=== PATIENT | male | born 1990 | race Caucasian/White ===

== ENCOUNTER 2021-12-24 20:00 | Emergency (ER) | payer OTHER, SELFPAY ==
--- NOTE | ~2021-12-24 | XR_ITS ---
XR foot LT 2V DATE: 12/24/2021 20:34 INDICATION: Left ankle and foot injury, pain TECHNIQUE: AP and lateral views COMPARISON: None FINDINGS: Slight plantar calcaneal enthesopathy. No fracture or dislocation, periosteal reaction or b one destruction. IMPRESSION: No fracture or dislocation Reviewed, dictated and finalized at location A. IMPRESSION: No fracture or dislocation
--- NOTE | ~2021-12-24 | XR_ITS ---
XR ankle LT 2V DATE: 12/24/2021 20:35 INDICATION: Left ankle and foot injury, pain TECHNIQUE: AP and lateral views COMPARISON: None FINDINGS: No fracture or dislocation of the ankle or disruption of the ankle mortise is detected. IMPRESSION: No fracture or dislocation of left ankle Reviewed, dictated and finalized at location A.
[2021-12-24 20:15] VITALS: BP 173/97; PULSE 85; RESP 16; TEMP 36.2; O2SAT 98
--- NOTE | 2021-12-24 20:52 | ED.LOWEXIN ---
HPI - Extremity Injury (Lower) General Chief Complaint: Extremity Injury, Lower Stated Complaint: L FOOT PAIN Source: patient Mode of arrival: ambulatory Limitations: no limitations History of Present Illness HPI Narrative: this is a 31-year-old gentleman that presents with some left foot and ankle pain after he had an episode where he misstepped and caused twisting his foot and ankle currently is pain level is about 3/10 when at rest and has more discomfort while ambulating otherwise there is mild swelling with no bruising with some mild numbness with no tingling has a strong brisk pedal pulse on the left. complaint: foot injury Onset (ago): day(s) Injury: Left: ankle ( pain with walking and palpation) and foot ( pain with walking and palpation) Type of Injury: inversion Place: street/outdoors Related Data Home Medications Medication Instructions Recorded Confirmed No Home Medications 12/24/21 12/24/21 Allergies Allergy/AdvReac Type Severity Reaction Status Date / Time No Known Allergies Allergy Verified 12/24/21 20:23 Review of Systems Review of Systems: All systems reviewed & are unremarkable except as noted in HPI and below PMFSH Past Medical History Medical History HTN (hypertension) Exam Const: General: healthy appearing and no acute distress Nutritional Appearance: well nourished Limitations: no limitations HENMT: Head: normal to inspection Ears: external ears normal Eyes: Conjunctivae: conjunctivae normal Neck: Neck: normal visual inspection, no lymphadenopathy and no meningeal signs Chest: Chest palpation & inspection: normal inspection of the chest Resp: Effort & Inspection: normal respiratory effort Auscultation: clear to auscultation bilaterally Cardio: Rate: regular rate Rhythm: regular rhythm GI: GI Palp: Yes Soft to palpation Auscultation: normal bowel sounds Back/Spine/Pelvis: Back: no CVA tenderness Skin: General skin exam: normal color Rashes: no rashes Wounds: no wounds Neuro: General: patient oriented x3, moves all extremities, no meningeal signs and no focal motor deficits Extrem: Other: tenderness lateral aspect of his left ankle and foot palpation Psych: Mental Status: mental status grossly normal Affect: normal affect Course Course Emergency Course: x-rays reviewed with patient, Remy wrap placed and advised patient to take Tylenol or Motrin along with some elevation of his foot ankle while at rest and can use some ice to affected area. Vital Signs Vital signs: Vital Signs Temperature 36.2 C L 12/24/21 20:15 Pulse Rate 85 12/24/21 20:15 Respiratory Rate 16 12/24/21 20:15 Blood Pressure 173/97 H 12/24/21 20:15 Pulse Oximetry 98 12/24/21 20:15 Oxygen Delivery Room Air 12/24/21 20:15 Temperature 36.2 C L 12/24/21 20:15 Pulse Rate 85 12/24/21 20:15 Respiratory Rate 16 12/24/21 20:15 Blood Pressure 173/97 H 12/24/21 20:15 Pulse Oximetry 98 12/24/21 20:15 Oxygen Delivery Room Air 12/24/21 20:15 Critical Care Time Critical Care Time Critical Care Time: No Discharge Plan Discharge Clinical Impression: Ankle sprain and strain Patient Disposition: Home, Self-Care Condition: Stable Instructions: Antibiotic Form, Ankle Sprain (ED) Additional Instructions: take Tylenol or Motrin 1 to 2 times daily for the next 4 to 5 days continue with Remy wrap elevation and ice to affected area. Follow-up with primary care physician for evaluation of elevated blood pressure. Prescriptions: No Action No Home Medications Follow-up/Referrals: UNKNOWN,DOCTOR [Primary Care Provider] - Time of Disposition: :56
[2021-12-24 20:58] VITALS: BP 178/98; PULSE 84
== END 2021-12-24 21:00 | disposition home or self-care (01) ==
PROVIDERS: Emergency Provider Emergency Medicine
DX: S93.402A Sprain of unspecified ligament of left ankle, initial encounter (principal)
CPT/HCPCS: 73600; 73620; 99283

== ENCOUNTER 2022-09-08 08:17 | Emergency (ER) | payer BC, SELFPAY ==
[2022-09-08 08:30] VITALS: BP 169/90; PULSE 91; RESP 16; TEMP 35.9; O2SAT 97
--- NOTE | 2022-09-08 08:46 | ED.URI ---
HPI - URI/Sore Throat General Chief Complaint: Upper Respiratory Infection Stated Complaint: DRAINAGE/COUGH/FEVER/STREP EXPOSURE Time Seen by Provider: 09/08/22 08:46 Source: patient Mode of arrival: ambulatory Limitations: no limitations History of Present Illness HPI Narrative: The patient is a 32-year-old male presents with sore throat, left ear pain, and congestion, cough since Tuesday. states girlfriend and son has both been diagnosed with strep. Patient also complaining low-grade fevers and fatigue. has taken Tylenol with mild relief. Related Data Allergies Allergy/AdvReac Type Severity Reaction Status Date / Time sulfamethoxazole Allergy Rash Verified 09/08/22 08:29 [From Bactrim] trimethoprim [From Bactrim] Allergy Rash Verified 09/08/22 08:29 Review of Systems Review of Systems: CONSTITUTIONAL: Denies chills, sweats. reports malaise, fever.? EYES: Denies visual changes, redness, or discharge.? ENT: Reports rhinorrhea, congestion, otalgia and sore throat.? CARDIOVASCULAR: Denies chest pain, palpitations, or edema.? RESPIRATORY: Reports cough.? Denies dyspnea.? GASTROINTESTINAL: Denies abdominal pain, nausea, vomiting, diarrhea? SKIN: Denies rash or itching.? MUSCULOSKELETAL: Denies myalgia.? NEUROLOGIC: Denies headache All systems reviewed & are unremarkable except as noted in HPI and below PMFSH Past Medical History Medical History HTN (hypertension) Comments At time of signature, agree with nursing past medical, surgical, social and family history. There is no relevant family history pertinent to the presenting complaint? Exam Narrative: GENERAL: Well-appearing, well-nourished, and in no acute distress.? HEAD: Normocephalic, atraumatic.? EYES: PERRLA, conjunctivae clear, and EOMI. No nystagmus.? ENT: Nares clear, turbinates pink, no rhinorrhea or epistaxis. Mucous membranes moist. TM pearly miles with sharp light reflex bilaterally; no tragal tenderness. Oropharynx with erythema, without lesions. Tonsils enlarged and with mild exudate.? NECK: Supple. No lymphadenopathy. CHEST: No respiratory distress. Clear to auscultation.? No bony deformities, no asymmetry. Speaks in full sentences.? HEART: Regular rate and rhythm. No murmur heard. ? ABDOMEN: Soft, nontender, nondistended EXTREMITIES: Normal range of motion. No edema. ? SKIN: Warm, dry, no rash.? NEURO: Alert and oriented x3. No focal deficits. PSYCH: Normal mood and affect? Course Course Emergency Course: Patient is aware of diagnosis, understands and agrees to treatment plan.? Anticipatory guidance given.? Patient agrees to follow-up as directed and is aware of reasons to seek care at the emergency department.? Portions of this record may have been created with voice recognition software? Level of Care: Express Care Visit Vital Signs Vital signs: Vital Signs Temperature 35.9 C L 09/08/22 08:30 Pulse Rate 91 09/08/22 08:30 Respiratory Rate 16 09/08/22 08:30 Blood Pressure 169/90 H 09/08/22 08:30 Pulse Oximetry 97 09/08/22 08:30 Temperature 35.9 C L 09/08/22 08:30 Pulse Rate 91 09/08/22 08:30 Respiratory Rate 16 09/08/22 08:30 Blood Pressure 169/90 H 09/08/22 08:30 Pulse Oximetry 97 09/08/22 08:30 Reviewed MDM - URI/Sore Throat MDM Narrative Medical decision making narrative: Differential diagnosis considered: Patel virus, strep pharyngitis, allergic rhinitis, upper respiratory tract infection, sinusitis, rhinosinusitis, nasopharyngitis. viral pharyngitis, otitis media, otitis externa, pneumonia, bronchitis, viral cough syndrome, viral syndrome, and influenza.? Exam findings show no acute concerns or changes; patient is non-toxic appearing and is in no distress. Patient is appropriate for outpatient treatment and follow-up.? Lab Data Attestation: I reviewed the patient's lab results. Labs: Strep Screen Presumptive Negative
== END 2022-09-08 09:04 | disposition home or self-care (01) ==
PROVIDERS: Emergency Provider Nurse Practitioner Family
DX: J03.90 Acute tonsillitis, unspecified (principal); I10 Essential (primary) hypertension
CPT/HCPCS: 87081; 87880; 99213; G0463

== ENCOUNTER 2023-11-15 07:37 | Outpatient (CLI) | payer BC, SELFPAY ==
[2023-11-15 07:50] LABS: Basophils Absolute Auto 0.04 K/mm3 (0.00-0.10); Basophils Percent Auto 0.6 % (0.0-1.0); Eosinophils Percent Auto 1.4 % (1.0-6.0); Hematocrit 45.5 % (40.0-54.0); Hemoglobin 15.2 g/dL (14.0-18.0); Immature Granulocyte Absolute 0.02 K/mm3 (0.00-0.00); Immature Granulocyte Percent A 0.3 % (0.0-0.0); Lymphocytes Absolute Auto 2.45 K/mm3 (1.10-4.50); Lymphocytes Percent Auto 33.7 % (18.0-42.0); Mean Corpuscular HGB Conc 33.4 g/dL (32-36); Mean Corpuscular Hemoglobin 29.1 pg (27.0-31.0); Mean Platelet Volume 10.4 fl (8.7-11.0); Monocytes Absolute Auto 0.77 K/mm3 (0.10-0.90); Monocytes Percent Auto 10.6 % (2.0-11.0); Neutrophils Absolute Auto 3.88 K/mm3 (1.70-7.20); Neutrophils Percent Auto 53.4 % (50.0-70.0); Platelet Count Result 262 K/mm3 (150-420); Red Blood Count 5.23 M/mm3 (4.70-6.10); Red Cell Distribution Width 12.7 % (11.6-14.4); White Blood Count 7.3 K/mm3 (4.8-10.8)
[2023-11-15 08:05] LABS: Hemoglobin A1C 5.6 % (<5.7)
[2023-11-15 08:14] LABS: Alanine Aminotransferase 41 U/L (16-63); Albumin Level 3.7 g/dL (3.4-5.0); Alkaline Phosphatase 75 U/L (46-116); Anion Gap 7 mmol/L (4-12); Aspartate Amino Transferase 16 U/L (15-37); Bilirubin,Total 0.6 mg/dL (0.00-1.00); Blood Urea Nitrogen 17 mg/dL (7-18); Calcium 8.8 mg/dL (8.5-10.1); Carbon Dioxide 31 mmol/L (21-32); Chloride 104 mmol/L (98-108); Cholesterol 183 mg/dL (0-200); Estimated Glomerular Filt Rate > 60; Glucose 100 mg/dL (70-99); HDL Direct 33 mg/dL (40-60); LDL Cholesterol Calculated 111 mg/dL (<130); Osmolality Calculated 295 mOsm/kg (285-295); Potassium 3.9 mmol/L (3.5-5.1); Sodium 142 mmol/L (136-145); Triglycerides 194 mg/dL (0-150)
== END 2023-11-15 07:38 | disposition home or self-care (01) ==
LOC: CHSLAB 07:39
PROVIDERS: PCP Family Medicine; Visit Provider Family Medicine
DX: Z13.228 Encounter for screening for other metabolic disorders (principal); R73.9 Hyperglycemia, unspecified; R53.83 Other fatigue; Z13.220 Encounter for screening for lipoid disorders
CPT/HCPCS: 36415; 80053; 80061; 83036; 85025

== ENCOUNTER 2024-01-18 08:58 | Emergency (ER) | payer BC, SELFPAY ==
--- NOTE | ~2024-01-18 | XR_ITS ---
XR chest 2V Ordering provider: Andria Mccoy APRN History: 33 years Male with . cough, fever . Comparison: July 01, 2004 FINDINGS: MEDIASTINUM: The cardiac silhouette is not enlarged. LUNGS: No infiltrates, effusions or pneumothorax. OTHER: No free air under the diaphragm. IMPRESSION: No acute cardiopulmonary pathology. Reviewed, dictated and finalized at location A.
[2024-01-18 09:04] VITALS: BP 123/75; PULSE 77; RESP 16; TEMP 36.5; O2SAT 96
--- NOTE | 2024-01-18 09:13 | ED.URI ---
HPI - URI/Sore Throat General Chief Complaint: Upper Respiratory Infection Stated Complaint: FEVER/COUGH Source: patient and RN notes reviewed Mode of arrival: ambulatory Limitations: no limitations History of Present Illness HPI Narrative: 33 y/o male with hx HTN presented for c/o cough, chest congestion, and fever x1 week. Endorses cough is worse at night. Last Temp up to 101 two days ago, taking Tylenol and ibuprofen for fever. Pt tested negative for flu and covid 5 days ago. Taking Mucinex. Denies sob, wheezing, n/v/d or lethargy. MD elicited complaint: cough Related Data Allergies Allergy/AdvReac Type Severity Reaction Status Date / Time sulfamethoxazole Allergy Rash Verified 01/18/24 09:15 [From Bactrim] trimethoprim [From Bactrim] Allergy Rash Verified 01/18/24 09:15 Review of Systems Review of Systems: CONSTITUTIONAL: Endorses fever EYES: Denies visual changes, redness, or discharge ENT: denies rhinorrhea, congestion, sinus pain, otalgia, sore throat CARDIOVASCULAR: Denies chest pain, palpitations, edema RESPIRATORY: Reports cough, Denies dyspnea GASTROINTESTINAL: Denies abdominal pain, nausea, vomiting, diarrhea SKIN: Denies rash or itching MUSCULOSKELETAL: denies myalgia NEUROLOGIC: Denies headache All systems reviewed & are unremarkable except as noted in HPI and below PMFSH Past Medical History Medical History HTN (hypertension) Family History Family History Father Bladder cancer Diabetes mellitus Hypertension Depression Mother Diabetes mellitus Grandparent Pancreatic cancer Diabetes mellitus Son Asthma Social History Social History Smoking status: Never smoker Alcohol intake: current Substance use: never Substance use type: does not use Do You Feel Safe in your Home?: Yes Lack of Transportation: No Lack of Food: Never True Current Housing: I Have Housing Concerned About Future Housing: No Difficulty Paying Gas/Electric Bills: No Difficulty Paying for Meds: No Currently Unemployed: No Education: Bachelor's Degree Difficulty w/ Childcare or Family Care: No Living arrangements: with family Occupation/Education: occupation Gender identity (if verbalized by the patient): Male Agree to blood products: Yes Comments At time of signature, I have reviewed and agree with nursing past medical, surgical, social and family history unless otherwise noted. Please see nursing chart for further information. There is no relevant family history pertinent to the presenting complaint Exam Narrative: GENERAL: well-appearing, nontoxic no acute distress. EYES: PERRLA, conjunctivae clear ENT: Mucous membranes moist. TMs pearly miles with dull light reflex bilaterally; no tragal tenderness. Oropharynx not erythematous without lesions or exudate, no drooling, no hoarseness, no trismus, uvula midline. NECK: Supple. No lymphadenopathy CHEST: End expiratory congestion. Occasional back tender cylinder cough. No respiratory distress, speaks in full sentences. HEART: Regular rate and rhythm. No murmur heard. SKIN: Warm, dry, no rash. NEURO: Alert and oriented x3. PSYCH: Normal mood and affect Course Course Emergency Course: Patient is aware of diagnosis, understands and agrees to treatment plan. Anticipatory guidance given. Patient agrees to follow-up as directed and is aware of reasons to seek care at the emergency department. Portions of this record may have been created with voice recognition software Level of Care: Express Care Visit Vital Signs Vital signs: Vital Signs Temperature 97.7 F 01/18/24 09:04 Pulse Rate 77 01/18/24 09:04 Respiratory Rate 16 01/18/24 09:04 Blood Pressure 123/75 01/18/24 09:04 Pulse Oximetry 96 01/18/24 09:04 Temperature 97.7 F 01/18/24 09:04 Pulse
== END 2024-01-18 09:43 | disposition home or self-care (01) ==
PROVIDERS: Emergency Provider Nurse Practitioner Family; PCP Family Medicine
DX: J40 Bronchitis, not specified as acute or chronic (principal); I10 Essential (primary) hypertension
CPT/HCPCS: 71046; 99213; G0463